=== PATIENT | male | born 1990 | race Caucasian/White ===

== ENCOUNTER 2016-07-19 14:22 | Emergency (ER) | payer SELFPAY ==
[~2016-07-19] VITALS: Ht 177.8 cm; Wt 102.3 kg
[2016-07-19 14:27] VITALS: BP 122/75; PULSE 104; TEMP 99.8
[2016-07-19 15:16] LABS: INFLUENZA B NEGATIVE
== END 2016-07-19 15:58 | disposition home or self-care (01) ==
LOC: COL.ER 14:22
PROVIDERS: Physician Assistant
DX: J11.1 Influenza due to unidentified influenza virus with other respiratory manifestations (principal)